=== PATIENT | female | born 1950 | race Caucasian/White ===

== ENCOUNTER → 2016-06-04 | Outpatient (CLI) | payer MEDICARE, OTHER ==
[~2016-06-04] MED LIST: FAMOTIDINE20 MG PO; LEVOTHYROXINE50 MCG PO; LIPITOR TAB 2020 MG PO; LISINOPRIL30 MG PO; MIRALAX17 GM PO; NAPROXEN250 MG PO; NEURONTIN 300300 MG PO; NORCO 7.5-3251 EACH PO; PROPRANOLOL HCL20 MG PO; VALIUM 2 MG TAB2 MG PO; ZYLOPRIM 100 M100 MG PO
[2016-06-04 09:45] LABS: HEMOGLOBIN 13.6 gm/dl (12.3-15.3); RED BLOOD COUNT 4.46 M/UL (4.00-5.10); WHITE BLOOD COUNT 10.9 K/UL (4.5-11.0)
== END ==
LOC: OPSV2 08:24
PROVIDERS: Obstetrics & Gynecology
DX: Z01.812 Encounter for preprocedural laboratory examination (principal); Z01.818 Encounter for other preprocedural examination; N81.10 Cystocele, unspecified; Z88.2 Allergy status to sulfonamides; I10 Essential (primary) hypertension; Z79.899 Other long term (current) drug therapy
CPT/HCPCS: 36415; 71020; 80048; 81001; 85025

== ENCOUNTER 2016-06-06 10:25 | Day surgery (SDC) | payer MEDICARE, OTHER ==
[~2016-06-06] VITALS: Ht 152.4 cm; Wt 68.5 kg
[2016-06-06] MEDS ORDERED: LEVOTHYROXINE50 MCG PO (11:43)
[2016-06-06] MEDS ORDERED: ZYLOPRIM 100 M100 MG PO (11:43)
[2016-06-06] MEDS ORDERED: LIPITOR TAB 2020 MG PO (11:44)
[2016-06-06] MEDS ORDERED: PROPRANOLOL HCL20 MG PO (11:44)
[2016-06-06] MEDS ORDERED: FAMOTIDINE20 MG PO (11:45)
[2016-06-06] MEDS ORDERED: LISINOPRIL30 MG PO (11:45)
[2016-06-06] MEDS ORDERED: VALIUM 2 MG TAB2 MG PO (11:46)
[2016-06-07 05:35] LABS: HEMOGLOBIN 11.9 gm/dl (12.3-15.3)
[2016-06-07] MEDS ORDERED: NEURONTIN 300300 MG PO (07:00)
[2016-06-07] MEDS ORDERED: NAPROXEN250 MG PO (10:07)
[2016-06-07] MEDS ORDERED: NORCO 7.5-3251 EACH PO (10:08)
[2016-06-07] MEDS ORDERED: MIRALAX17 GM PO (10:08)
== END 2016-06-07 13:46 | disposition home or self-care (01) ==
LOC: OR 10:25 → M/S 15:07 → OR 06-07 13:46
PROVIDERS: Obstetrics & Gynecology; Physician Assistant
PROC: 0JQC0ZZ Repair Pelvic Region Subcutaneous Tissue and Fascia, Open Approach (ICD-10-PCS; 2016-06-06)
PROC: 0TQD0ZZ Repair Urethra, Open Approach (ICD-10-PCS; 2016-06-06)
PROC: 0TSD0ZZ Reposition Urethra, Open Approach (ICD-10-PCS; principal; 2016-06-06 14:45)
PROC: 0USG0ZZ Reposition Vagina, Open Approach (ICD-10-PCS; 2016-06-06 14:45)
DX: N81.10 Cystocele, unspecified (principal); N39.3 Stress incontinence (female) (male); R23.4 Changes in skin texture; I10 Essential (primary) hypertension; K21.9 Gastro-esophageal reflux disease without esophagitis; M19.90 Unspecified osteoarthritis, unspecified site; M10.9 Gout, unspecified; Z82.49 Family history of ischemic heart disease and other diseases of the circulatory system; Z83.3 Family history of diabetes mellitus; Z88.2 Allergy status to sulfonamides; Z79.899 Other long term (current) drug therapy; Z90.710 Acquired absence of both cervix and uterus; Z98.51 Tubal ligation status
CPT/HCPCS: 36415; 80048; 85014; 85018; C1769; C1771; J0690; J1100; J1885; J2405; J2710; J2795; J3010; J7120

== ENCOUNTER → 2016-08-17 | Outpatient (CLI) | payer MEDICARE, OTHER | LOC: LAB 09:25 | PROVIDERS: Internal Medicine Nephrology | DX: M10.9 Gout, unspecified (principal); N18.3 Chronic kidney disease, stage 3 (moderate) | CPT/HCPCS: 36415; 80048; 81001; 82043; 82570; 84550 ==

== ENCOUNTER → 2020-08-17 | Outpatient (CLI) | payer MEDICARE, OTHER ==
[~2020-08-17] MED LIST changes: +ELIQUIS 2.5 MG2.5 MG PO; +INDERAL TAB 1010 MG PO; -LISINOPRIL30 MG PO; +MULTI FOR HER1 EACH PO; +NORCO 5-325 TA1 EACH PO; +NORVASC2.5 MG PO; -PROPRANOLOL HCL20 MG PO; +PROTONIX40 MG PO; +SENOKOT8.6 MG PO; +TYLENOL W/CODEIN1 E1 PO; +VISTARIL25 MG PO; +VITAMIN B-121000 MC3 PO; +VITAMIN C500 M1 PO; +VITAMIN D250000 UNIT PO; +VITAMIN D31000 UNI1 PO; +VITAMIN E400 UNI4 PO; +ZESTRIL40 MG PO
== END ==
LOC: KOH-I 14:40
DX: R05 Cough (principal); M54.2 Cervicalgia; M54.5 Low back pain; M54.6 Pain in thoracic spine; M79.672 Pain in left foot; M79.671 Pain in right foot; M19.071 Primary osteoarthritis, right ankle and foot; M19.072 Primary osteoarthritis, left ankle and foot; M41.9 Scoliosis, unspecified; M47.814 Spondylosis without myelopathy or radiculopathy, thoracic region; M47.816 Spondylosis without myelopathy or radiculopathy, lumbar region; M51.36 Other intervertebral disc degeneration, lumbar region; S33.120A Subluxation of L2/L3 lumbar vertebra, initial encounter; S33.39XA Dislocation of other parts of lumbar spine and pelvis, initial encounter; M47.812 Spondylosis without myelopathy or radiculopathy, cervical region; M50.30 Other cervical disc degeneration, unspecified cervical region; M48.02 Spinal stenosis, cervical region
CPT/HCPCS: 71046; 72050; 72070; 72100; 73630

== ENCOUNTER 2020-10-25 01:27 | Emergency (ER) | payer MEDICARE, OTHER ==
[2020-10-25 02:56] LABS: HEMOGLOBIN 12.6 gm/dl (12.3-15.3); RED BLOOD COUNT 4.04 M/UL (4.00-5.10); WHITE BLOOD COUNT 10.8 K/UL (4.5-11.0)
[2020-10-25 03:18] LABS: BUN/CREATININE RATIO 15 (0-10)
== END 2020-10-25 07:58 | disposition home or self-care (01) ==
LOC: ER1 01:27
PROVIDERS: Emergency Medicine
DX: R07.2 Precordial pain (principal)
CPT/HCPCS: 71045; 80053; 82550; 82553; 83874; 83880; 84484; 85025; 93005; 99285